=== PATIENT | female | born 1990 | race African-American/Black ===

== ENCOUNTER 2020-12-28 12:40 | Emergency (ER) | payer MEDICAID, OTHER ==
[~2020-12-28] VITALS: Ht 172.7 cm; Wt 104.3 kg
[2020-12-28 13:12] LABS: Basophils # (auto) 0 10 ^3/uL (0-0.2); Basophils % (auto) 0.4 % (0.0-2.0); Eosinophils # (auto) 0.1 10 ^3/uL (0-0.8); Eosinophils % (auto) 1.2 % (0.0-7.0); Hematocrit 40.1 % (36.0-46.0); Hemoglobin 13.4 g/dL (12.2-16.2); Lymphocytes # (auto) 1.7 10 ^3/uL (0.4-5.4); Lymphocytes % (auto) 28.2 % (10.0-50.0); Mean Corpuscular Hemoglobin 29.1 pg (28.0-32.0); Mean Corpuscular Hgb Conc. 33.5 g/dL (32.0-36.0); Monocytes # (auto) 0.4 10 ^3/uL (0-1.3); Monocytes % (auto) 6.9 % (0.0-12.0); Neutrophils # (auto) 3.8 10 ^3/uL (1.6-8.6); Neutrophils % (auto) 63.3 % (37.0-80.0); Nucleated Red Blood Cells % 0.1 %; Red Blood Cells 4.61 10^6/uL (4.0-5.20); Red Cell Distribution Width 13.6 % (11.8-14.3); White Blood Cell 6.1 10^3/uL (4.4-10.8)
[2020-12-28 13:27] LABS: Albumin 3.1 g/dL (3.4-5.0); Anion Gap 3 (5-15); Blood Urea Nitrogen 5 mg/dL (7-18); Carbon Dioxide 27 mmol/L (21-32); Chloride 107 mmol/L (98-107); Glucose 96 mg/dL (74-106); Magnesium 2.2 mg/dL (1.6-2.6); Potassium 3.7 mmol/L (3.5-5.1); Sodium 137 mmol/L (136-145)
[2020-12-28 13:33] LABS: Alanine Aminotransferase 69 U/L (13-56); Alkaline Phosphatase 69 U/L (45-117); Aspartate Aminotransferase 58 U/L (15-37); BUN/Creatinine Ratio 5.6; Bilirubin, Total 0.5 mg/dL (0.2-1.0); GFR African American 96 mL/min; GFR Non-African American 79 mL/min; Total Protein 7.6 g/dL (6.4-8.2)
[2020-12-28 16:41] VITALS: BP 127/88
== END 2020-12-28 16:21 | disposition home or self-care (01) ==
LOC: ER 12:40
DX: R07.89 Other chest pain (principal); K21.9 Gastro-esophageal reflux disease without esophagitis
CPT/HCPCS: 36415; 71046; 80053; 83735; 84484; 85025; 93005

== ENCOUNTER 2022-01-25 09:33 | Inpatient (IN) | payer MEDICAID ==
[~2022-01-25] VITALS: Ht 172.7 cm; Wt 97.7 kg
[2022-01-25] MEDS ORDERED: SODIUM CHLORIDE 0.9% 1,000 ML IVB ONE (10:00)
[2022-01-25] MEDS ORDERED: ONDANSETRON HCL 4 MG/2 ML VIAL IV ONE (10:00)
[2022-01-25] MEDS ORDERED: MORPHINE SULFATE 4 MG/ML SYR/VIAL IV ONE (10:00)
[2022-01-25 10:32] LABS: Basophils # (auto) 0 10 ^3/uL (0-0.2); Basophils % (auto) 0.1 % (0.0-2.0); Eosinophils # (auto) 0 10 ^3/uL (0-0.8); Monocytes # (auto) 0.7 10 ^3/uL (0-1.3)
[2022-01-25 10:35] LABS: Hematocrit 53.2 % (36.0-46.0); Lymphocytes # (auto) 1.4 10 ^3/uL (0.4-5.4); Lymphocytes % (auto) 9.5 % (10.0-50.0); Mean Corpuscular Hemoglobin 27.8 pg (28.0-32.0); Mean Corpuscular Hgb Conc. 31.9 g/dL (32.0-36.0); Mean Corpuscular Volume 87.2 fL (80.0-100.0); Monocytes % (auto) 4.7 % (0.0-12.0); Neutrophils # (auto) 12.2 10 ^3/uL (1.6-8.6); Neutrophils % (auto) 85.7 % (37.0-80.0); Nucleated Red Blood Cells % 0.1 %; Red Blood Cells 6.11 10^6/uL (4.0-5.20); Red Cell Distribution Width 14.1 % (11.8-14.3); White Blood Cell 14.3 10^3/uL (4.4-10.8)
[2022-01-25 10:50] LABS: Calcium 7.5 mg/dL (8.5-10.1); Potassium 4.7 mmol/L (3.5-5.1)
[2022-01-25 10:51] LABS: Lactic Acid w/Reflex 6.3 mmol/L (0.4-2.0)
[2022-01-25 10:54] LABS: INR 1.2 (0.9-1.15); Partial Thromboplastin Time 27.5 sec (24.6-33.4)
[2022-01-25 10:59] LABS: BUN/Creatinine Ratio 11.3; Bilirubin, Total 1.1 mg/dL (0.2-1.0); Total Protein 7.6 g/dL (6.4-8.2)
[2022-01-25 11:03] LABS: Urine Bacteria NONE SEEN /hpf (None Seen); Urine Blood 3+ /uL (Negative); Urine Mucus FEW (None Seen); Urine WBC 3 /hpf (0 - 5)
[2022-01-25] MEDS ORDERED: levoFLOXacin 500MG 100 ML IV ONE (11:45)
[2022-01-25] MEDS ORDERED: cefTRIAXone 1GM/50ML D5W 50 ML IV ONE (11:45)
[2022-01-25] MEDS ORDERED: SODIUM CHLORIDE 0.9% 2,000 ML IV ONE (11:45)
[2022-01-25] MEDS ORDERED: NITROGLYCERIN 0.4 MG SL TAB SL PRN (13:45)
[2022-01-25] MEDS ORDERED: MORPHINE SULFATE INJ 2 MG/ml SYRG IV PRN (13:45)
[2022-01-25] MEDS: SODIUM CHLORIDE 0.9% 1,000 ML IV SCH (16:01)
[2022-01-25] MEDS ORDERED: PANTOPRAZOLE 40 MG/10 ML VIAL INJ IV ONE (16:45)
[2022-01-25] MEDS: LORazepam 2MG/ML-1ML VIAL IV PRN ×2 (16:46→22:36)
[2022-01-25 18:30] VITALS: BP 115/80
[2022-01-25] MEDS: metroNIDAZOLE 500MG/100ML 100 ML IV SCH (22:44)
[2022-01-25] MEDS ORDERED: MORPHINE SULFATE INJ 2 MG/ml SYRG IV ONE (23:30)
[2022-01-25] MEDS: MORPHINE SULFATE INJ 2 MG/ml SYRG IV PRN (23:39)
[2022-01-26] MEDS ORDERED: METOPROLOL TARTRATE 1MG/1ML-5ML VIAL IV ONE (01:00)
[2022-01-26 01:13] VITALS: BP 114/76
[2022-01-26] MEDS: LORazepam 2MG/ML-1ML VIAL IV PRN ×5 (02:24→22:35)
[2022-01-26 05:35] VITALS: BP 133/77
[2022-01-26] MEDS: metroNIDAZOLE 500MG/100ML 100 ML IV SCH ×3 (06:08→22:34)
[2022-01-26 06:32] LABS: Basophils # (auto) 0 10 ^3/uL (0-0.2); Basophils % (auto) 0.2 % (0.0-2.0); Eosinophils # (auto) 0 10 ^3/uL (0-0.8); Lymphocytes % (auto) 7.3 % (10.0-50.0); Monocytes # (auto) 0.9 10 ^3/uL (0-1.3); Monocytes % (auto) 6.9 % (0.0-12.0); Neutrophils # (auto) 11.5 10 ^3/uL (1.6-8.6); Neutrophils % (auto) 85.6 % (37.0-80.0); Red Blood Cells 5.35 10^6/uL (4.0-5.20); White Blood Cell 13.5 10^3/uL (4.4-10.8)
[2022-01-26 06:33] LABS: Hematocrit 46.5 % (36.0-46.0); Hemoglobin 15.2 g/dL (12.2-16.2); Mean Corpuscular Hemoglobin 28.5 pg (28.0-32.0); Mean Corpuscular Hgb Conc. 32.8 g/dL (32.0-36.0); Mean Corpuscular Volume 86.9 fL (80.0-100.0); Red Cell Distribution Width 14.1 % (11.8-14.3)
[2022-01-26] MEDS: SODIUM CHLORIDE 0.9% 1,000 ML IV SCH ×3 (06:33→15:52)
[2022-01-26 06:49] LABS: Albumin 2.3 g/dL (3.4-5.0); Calcium 6.4 mg/dL (8.5-10.1)
[2022-01-26 06:53] LABS: BUN/Creatinine Ratio 11.8; Bilirubin, Total 0.9 mg/dL (0.2-1.0); Total Protein 6.8 g/dL (6.4-8.2)
[2022-01-26] MEDS: cefTRIAXone 1GM/50ML D5W 50 ML IV SCH (08:27)
[2022-01-26] MEDS: PANTOPRAZOLE 40 MG/10 ML VIAL INJ IV SCH (08:28)
[2022-01-26 08:37] VITALS: BP 133/73
[2022-01-26 09:53] LABS: Amylase 791 U/L (25-115); Lipase 1780 U/L (73-393)
[2022-01-26] MEDS ORDERED: SODIUM CHLORIDE 0.9% 1,000 ML IV ONE (10:15)
[2022-01-26] MEDS: MORPHINE SULFATE INJ 2 MG/ml SYRG IV PRN ×2 (11:00→15:42)
[2022-01-26] MEDS: chlordiazePOXIDE HCL 25 MG CAP PO PRN ×2 (11:01→19:07)
[2022-01-26 12:43] VITALS: BP 140/77
[2022-01-26 15:40] LABS: BUN/Creatinine Ratio 13.2; Calcium 6.2 mg/dL (8.5-10.1); Potassium 4.1 mmol/L (3.5-5.1)
[2022-01-26] MEDS: FOLIC ACID 1 MG, MULTIPLE VITAMIN 10 ML, MAGNESIUM SULF SDV 50% 8 MEQ, THIAMINE INJ 100... INJ SCH ×5 (15:51)
[2022-01-26 17:27] VITALS: BP 140/77
[2022-01-26] MEDS: ACETAMINOPHEN 325 MG TAB PO PRN (19:07)
[2022-01-26] MEDS: SOD CHL 0.45% 1,000 ML IV SCH (19:09)
[2022-01-26 22:00] VITALS: BP 130/84
[2022-01-27] MEDS: SOD CHL 0.45% 1,000 ML IV SCH ×3 (02:15→18:38)
[2022-01-27] MEDS: LORazepam 2MG/ML-1ML VIAL IV PRN ×3 (03:32→21:43)
[2022-01-27] MEDS: chlordiazePOXIDE HCL 25 MG CAP PO PRN ×3 (03:33→18:40)
[2022-01-27 04:24] LABS: Basophils # (auto) 0 10 ^3/uL (0-0.2); Basophils % (auto) 0.2 % (0.0-2.0); Eosinophils # (auto) 0 10 ^3/uL (0-0.8); Hematocrit 41.4 % (36.0-46.0); Hemoglobin 13.1 g/dL (12.2-16.2); Lymphocytes # (auto) 1.3 10 ^3/uL (0.4-5.4); Lymphocytes % (auto) 9.9 % (10.0-50.0); Mean Corpuscular Hgb Conc. 31.7 g/dL (32.0-36.0); Mean Corpuscular Volume 88.2 fL (80.0-100.0); Monocytes % (auto) 7.7 % (0.0-12.0); Neutrophils # (auto) 10.5 10 ^3/uL (1.6-8.6); Neutrophils % (auto) 82.2 % (37.0-80.0); Nucleated Red Blood Cells % 0.1 %; Red Cell Distribution Width 13.9 % (11.8-14.3); White Blood Cell 12.8 10^3/uL (4.4-10.8)
[2022-01-27 04:34] LABS: BUN/Creatinine Ratio 16.1; Calcium 6.8 mg/dL (8.5-10.1); Potassium 3.5 mmol/L (3.5-5.1)
[2022-01-27 05:00] VITALS: BP 131/89
[2022-01-27] MEDS: metroNIDAZOLE 500MG/100ML 100 ML IV SCH ×3 (05:12→21:42)
[2022-01-27] MEDS ORDERED: GASTROGRAFIN 30 ML SOL ONE (08:42)
[2022-01-27] MEDS: cefTRIAXone 1GM/50ML D5W 50 ML IV SCH (08:51)
[2022-01-27] MEDS: PANTOPRAZOLE 40 MG/10 ML VIAL INJ IV SCH (08:52)
[2022-01-27] MEDS: ONDANSETRON HCL 4 MG/2 ML VIAL IV PRN ×2 (09:04→18:49)
[2022-01-27 09:07] VITALS: BP 130/86
[2022-01-27] MEDS: MORPHINE SULFATE INJ 2 MG/ml SYRG IV PRN ×3 (11:10→17:16)
[2022-01-27] MEDS: FOLIC ACID 1 MG, MULTIPLE VITAMIN 10 ML, MAGNESIUM SULF SDV 50% 8 MEQ, THIAMINE INJ 100... INJ SCH ×5 (13:09)
[2022-01-27 13:47] VITALS: BP 138/88
[2022-01-27] MEDS: ACETAMINOPHEN 325 MG TAB PO PRN (17:15)
[2022-01-27 17:16] VITALS: BP 130/87
[2022-01-27 22:00] VITALS: BP 136/71
[2022-01-28] MEDS: SOD CHL 0.45% 1,000 ML IV SCH ×3 (01:51→18:46)
[2022-01-28 04:51] VITALS: BP 133/66
[2022-01-28 06:28] LABS: Hematocrit 38.1 % (36.0-46.0); Hemoglobin 12.5 g/dL (12.2-16.2); Mean Corpuscular Hemoglobin 28.3 pg (28.0-32.0); Mean Corpuscular Hgb Conc. 32.8 g/dL (32.0-36.0); Mean Corpuscular Volume 86.2 fL (80.0-100.0); Red Blood Cells 4.43 10^6/uL (4.0-5.20); Red Cell Distribution Width 14.1 % (11.8-14.3); White Blood Cell 12.7 10^3/uL (4.4-10.8)
[2022-01-28 06:43] LABS: Potassium 3.6 mmol/L (3.5-5.1)
[2022-01-28 06:45] LABS: Basophils % (manual) 0 (0.0-2.0); Blast Cells 0; Eosinophils % (manual) 0 (0-7); Metamyelocytes % 0; Myelocytes % 0; Promyelocytes % 0; Reactive Lymphocytes 0
[2022-01-28 06:47] LABS: Albumin 2.3 g/dL (3.4-5.0); BUN/Creatinine Ratio 16.3; Calcium 8.1 mg/dL (8.5-10.1)
[2022-01-28 06:58] LABS: Bilirubin, Total 1.9 mg/dL (0.2-1.0); Total Protein 6.7 g/dL (6.4-8.2)
[2022-01-28] MEDS: ONDANSETRON HCL 4 MG/2 ML VIAL IV PRN (08:05)
[2022-01-28] MEDS: metroNIDAZOLE 500MG/100ML 100 ML IV SCH ×3 (08:06→22:55)
[2022-01-28 08:28] LABS: Band Neutrophils % (manual) 2; Lymphocytes % (manual) 9 (10.0-50.0); Monocytes % (manual) 5 (0-12)
[2022-01-28 09:00] VITALS: BP 139/100
[2022-01-28] MEDS: cefTRIAXone 1GM/50ML D5W 50 ML IV SCH (10:24)
[2022-01-28] MEDS: chlordiazePOXIDE HCL 25 MG CAP PO PRN (10:24)
[2022-01-28] MEDS: PANTOPRAZOLE 40 MG/10 ML VIAL INJ IV SCH (10:25)
[2022-01-28] MEDS: LORazepam 2MG/ML-1ML VIAL IV PRN ×3 (11:11→20:52)
[2022-01-28] MEDS: MORPHINE SULFATE INJ 2 MG/ml SYRG IV PRN (12:45)
[2022-01-28 13:00] VITALS: BP 130/93
[2022-01-28] MEDS: FOLIC ACID 1 MG, MULTIPLE VITAMIN 10 ML, MAGNESIUM SULF SDV 50% 8 MEQ, THIAMINE INJ 100... INJ SCH ×5 (14:51)
[2022-01-28 16:59] VITALS: BP 149/96
[2022-01-28 22:00] VITALS: BP 128/78
[2022-01-29] MEDS: SOD CHL 0.45% 1,000 ML IV SCH ×3 (02:15→19:46)
[2022-01-29 05:00] VITALS: BP 129/77
[2022-01-29 05:24] LABS: Basophils # (auto) 0 10 ^3/uL (0-0.2); Basophils % (auto) 0.2 % (0.0-2.0); Eosinophils # (auto) 0 10 ^3/uL (0-0.8); Eosinophils % (auto) 0.2 % (0.0-7.0); Hematocrit 38.3 % (36.0-46.0); Hemoglobin 12.4 g/dL (12.2-16.2); Lymphocytes # (auto) 0.6 10 ^3/uL (0.4-5.4); Mean Corpuscular Hemoglobin 27.8 pg (28.0-32.0); Mean Corpuscular Hgb Conc. 32.4 g/dL (32.0-36.0); Mean Corpuscular Volume 85.8 fL (80.0-100.0); Monocytes # (auto) 1.2 10 ^3/uL (0-1.3); Monocytes % (auto) 9.3 % (0.0-12.0); Neutrophils # (auto) 10.9 10 ^3/uL (1.6-8.6); Neutrophils % (auto) 85.3 % (37.0-80.0); Nucleated Red Blood Cells % 0.1 %; Red Blood Cells 4.46 10^6/uL (4.0-5.20); White Blood Cell 12.7 10^3/uL (4.4-10.8)
[2022-01-29 05:43] LABS: BUN/Creatinine Ratio 17.7; Calcium 8.4 mg/dL (8.5-10.1); Potassium 3.6 mmol/L (3.5-5.1)
[2022-01-29] MEDS: metroNIDAZOLE 500MG/100ML 100 ML IV SCH ×3 (06:47→21:48)
[2022-01-29 09:00] VITALS: BP 143/90
[2022-01-29] MEDS: cefTRIAXone 1GM/50ML D5W 50 ML IV SCH (11:00)
[2022-01-29] MEDS: chlordiazePOXIDE HCL 25 MG CAP PO PRN (11:01)
[2022-01-29] MEDS: PANTOPRAZOLE 40 MG/10 ML VIAL INJ IV SCH (11:01)
[2022-01-29] MEDS: LORazepam 2MG/ML-1ML VIAL IV PRN ×2 (11:18→20:25)
[2022-01-29 13:00] VITALS: BP 147/91
[2022-01-29] MEDS: FOLIC ACID 1 MG, MULTIPLE VITAMIN 10 ML, MAGNESIUM SULF SDV 50% 8 MEQ, THIAMINE INJ 100... INJ SCH ×5 (14:25)
[2022-01-29 17:00] VITALS: BP 122/84
[2022-01-29 22:04] VITALS: BP 126/85
[2022-01-30] MEDS: LORazepam 2MG/ML-1ML VIAL IV PRN ×3 (00:41→18:55)
[2022-01-30] MEDS: SOD CHL 0.45% 1,000 ML IV SCH ×3 (04:02→18:15)
[2022-01-30 04:48] VITALS: BP 129/86
[2022-01-30] MEDS: metroNIDAZOLE 500MG/100ML 100 ML IV SCH ×3 (05:27→22:53)
[2022-01-30 07:09] LABS: Basophils # (auto) 0 10 ^3/uL (0-0.2); Basophils % (auto) 0.1 % (0.0-2.0); Eosinophils # (auto) 0 10 ^3/uL (0-0.8); Eosinophils % (auto) 0.3 % (0.0-7.0); Hematocrit 39.4 % (36.0-46.0); Hemoglobin 12.9 g/dL (12.2-16.2); Mean Corpuscular Hemoglobin 28.2 pg (28.0-32.0); Mean Corpuscular Hgb Conc. 32.7 g/dL (32.0-36.0); Mean Corpuscular Volume 86.2 fL (80.0-100.0); Monocytes # (auto) 1.3 10 ^3/uL (0-1.3); Monocytes % (auto) 7.9 % (0.0-12.0); Neutrophils # (auto) 14.6 10 ^3/uL (1.6-8.6); Neutrophils % (auto) 85.7 % (37.0-80.0); Nucleated Red Blood Cells % 0.1 %; Red Blood Cells 4.57 10^6/uL (4.0-5.20); Red Cell Distribution Width 13.9 % (11.8-14.3)
[2022-01-30 08:00] VITALS: BP 114/76
[2022-01-30 09:00] VITALS: BP 117/72
[2022-01-30] MEDS: PANTOPRAZOLE 40 MG/10 ML VIAL INJ IV SCH (09:08)
[2022-01-30] MEDS: cefTRIAXone 1GM/50ML D5W 50 ML IV SCH (09:08)
[2022-01-30 10:42] LABS: BUN/Creatinine Ratio 16.1; Calcium 7.7 mg/dL (8.5-10.1)
[2022-01-30 10:44] LABS: Potassium 3.9 mmol/L (3.5-5.1)
[2022-01-30 13:00] VITALS: BP 118/81
[2022-01-30] MEDS: FOLIC ACID 1 MG, MULTIPLE VITAMIN 10 ML, MAGNESIUM SULF SDV 50% 8 MEQ, THIAMINE INJ 100... INJ SCH ×5 (13:02)
[2022-01-30 17:00] VITALS: BP 134/81
[2022-01-30 21:55] VITALS: BP 136/83
[2022-01-31] MEDS: SOD CHL 0.45% 1,000 ML IV SCH ×3 (02:15→20:05)
[2022-01-31 05:00] VITALS: BP 115/76
[2022-01-31 06:01] LABS: Basophils # (auto) 0.1 10 ^3/uL (0-0.2); Basophils % (auto) 0.5 % (0.0-2.0); Eosinophils # (auto) 0 10 ^3/uL (0-0.8); Eosinophils % (auto) 0.2 % (0.0-7.0); Hematocrit 35.3 % (36.0-46.0); Hemoglobin 11.6 g/dL (12.2-16.2); Lymphocytes % (auto) 5.1 % (10.0-50.0); Mean Corpuscular Hemoglobin 27.9 pg (28.0-32.0); Mean Corpuscular Hgb Conc. 32.8 g/dL (32.0-36.0); Monocytes # (auto) 1.2 10 ^3/uL (0-1.3); Monocytes % (auto) 6.2 % (0.0-12.0); Neutrophils # (auto) 16.9 10 ^3/uL (1.6-8.6); Red Blood Cells 4.16 10^6/uL (4.0-5.20); Red Cell Distribution Width 13.7 % (11.8-14.3); White Blood Cell 19.2 10^3/uL (4.4-10.8)
[2022-01-31 06:21] LABS: BUN/Creatinine Ratio 18.5; Calcium 7.8 mg/dL (8.5-10.1); Potassium 3.6 mmol/L (3.5-5.1)
[2022-01-31] MEDS: metroNIDAZOLE 500MG/100ML 100 ML IV SCH ×3 (06:35→22:15)
[2022-01-31] MEDS: LORazepam 2MG/ML-1ML VIAL IV PRN ×2 (07:00→23:52)
[2022-01-31 08:45] VITALS: BP 123/69
[2022-01-31] MEDS: cefTRIAXone 1GM/50ML D5W 50 ML IV SCH (09:25)
[2022-01-31] MEDS: PANTOPRAZOLE 40 MG/10 ML VIAL INJ IV SCH (09:28)
[2022-01-31 10:44] LABS: Basophils # (auto) 0.1 10 ^3/uL (0-0.2); Basophils % (auto) 0.3 % (0.0-2.0); Eosinophils # (auto) 0 10 ^3/uL (0-0.8); Eosinophils % (auto) 0.2 % (0.0-7.0); Hemoglobin 11.6 g/dL (12.2-16.2); Lymphocytes # (auto) 1.1 10 ^3/uL (0.4-5.4); Lymphocytes % (auto) 5.6 % (10.0-50.0); Mean Corpuscular Hemoglobin 27.4 pg (28.0-32.0); Mean Corpuscular Hgb Conc. 31.4 g/dL (32.0-36.0); Mean Corpuscular Volume 87.4 fL (80.0-100.0); Monocytes # (auto) 1.5 10 ^3/uL (0-1.3); Monocytes % (auto) 7.5 % (0.0-12.0); Neutrophils # (auto) 17.7 10 ^3/uL (1.6-8.6); Neutrophils % (auto) 86.4 % (37.0-80.0); Red Blood Cells 4.23 10^6/uL (4.0-5.20); Red Cell Distribution Width 14.2 % (11.8-14.3); White Blood Cell 20.4 10^3/uL (4.4-10.8)
[2022-01-31 11:13] LABS: Calcium 7.7 mg/dL (8.5-10.1); Potassium 4.1 mmol/L (3.5-5.1)
[2022-01-31 13:12] VITALS: BP 119/76
[2022-01-31] MEDS: FOLIC ACID 1 MG, MULTIPLE VITAMIN 10 ML, MAGNESIUM SULF SDV 50% 8 MEQ, THIAMINE INJ 100... INJ SCH ×5 (14:25)
[2022-01-31 17:48] VITALS: BP 119/84
[2022-01-31 20:00] VITALS: BP 113/64
[2022-01-31 22:00] VITALS: BP 119/70
[2022-02-01] MEDS: SOD CHL 0.45% 1,000 ML IV SCH ×3 (04:15→14:45)
[2022-02-01 04:35] VITALS: BP 121/79
[2022-02-01] MEDS: metroNIDAZOLE 500MG/100ML 100 ML IV SCH ×3 (06:18→22:07)
[2022-02-01 06:59] LABS: BUN/Creatinine Ratio 15.7; Calcium 7.7 mg/dL (8.5-10.1); Potassium 3.8 mmol/L (3.5-5.1)
[2022-02-01] MEDS: cefTRIAXone 1GM/50ML D5W 50 ML IV SCH (08:52)
[2022-02-01] MEDS: PANTOPRAZOLE 40 MG/10 ML VIAL INJ IV SCH (08:52)
[2022-02-01 08:57] VITALS: BP 121/77
[2022-02-01 12:57] VITALS: BP 131/69
[2022-02-01] MEDS: FOLIC ACID 1 MG, MULTIPLE VITAMIN 10 ML, MAGNESIUM SULF SDV 50% 8 MEQ, THIAMINE INJ 100... INJ SCH ×5 (14:10)
[2022-02-01] MEDS: MORPHINE SULFATE INJ 2 MG/ml SYRG IV PRN ×2 (14:12→19:49)
[2022-02-01 17:23] VITALS: BP 124/74
[2022-02-01 20:00] VITALS: BP 124/74
[2022-02-01 22:00] VITALS: BP 131/77
[2022-02-02] MEDS: MORPHINE SULFATE INJ 2 MG/ml SYRG IV PRN ×4 (01:37→22:17)
[2022-02-02] MEDS: SOD CHL 0.45% 1,000 ML IV SCH (02:00)
[2022-02-02 05:00] VITALS: BP 111/71
[2022-02-02 05:26] LABS: Basophils # (auto) 0 10 ^3/uL (0-0.2); Basophils % (auto) 0.2 % (0.0-2.0); Eosinophils # (auto) 0.1 10 ^3/uL (0-0.8); Eosinophils % (auto) 0.4 % (0.0-7.0); Hematocrit 33.8 % (36.0-46.0); Hemoglobin 10.9 g/dL (12.2-16.2); Lymphocytes % (auto) 5.6 % (10.0-50.0); Mean Corpuscular Hgb Conc. 32.4 g/dL (32.0-36.0); Mean Corpuscular Volume 86.6 fL (80.0-100.0); Monocytes # (auto) 1.8 10 ^3/uL (0-1.3); Monocytes % (auto) 10.1 % (0.0-12.0); Neutrophils # (auto) 14.9 10 ^3/uL (1.6-8.6); Neutrophils % (auto) 83.7 % (37.0-80.0); Red Cell Distribution Width 14.1 % (11.8-14.3); White Blood Cell 17.8 10^3/uL (4.4-10.8)
[2022-02-02] MEDS: metroNIDAZOLE 500MG/100ML 100 ML IV SCH ×3 (05:44→22:17)
[2022-02-02 05:49] LABS: BUN/Creatinine Ratio 13.3; Calcium 7.7 mg/dL (8.5-10.1); Potassium 3.8 mmol/L (3.5-5.1)
[2022-02-02 08:30] VITALS: BP 141/79
[2022-02-02] MEDS: cefTRIAXone 1GM/50ML D5W 50 ML IV SCH (09:16)
[2022-02-02] MEDS: PANTOPRAZOLE 40 MG/10 ML VIAL INJ IV SCH (09:17)
[2022-02-02 12:58] VITALS: BP 137/84
[2022-02-02] MEDS: FOLIC ACID 1 MG, MULTIPLE VITAMIN 10 ML, MAGNESIUM SULF SDV 50% 8 MEQ, THIAMINE INJ 100... INJ SCH ×5 (14:10)
[2022-02-02 17:00] VITALS: BP 127/79
[2022-02-02 22:00] VITALS: BP 132/76
[2022-02-03] MEDS: LORazepam 2MG/ML-1ML VIAL IV PRN (01:44)
[2022-02-03] MEDS: SOD CHL 0.45% 1,000 ML IV SCH (03:16)
[2022-02-03 04:17] LABS: Basophils # (auto) 0 10 ^3/uL (0-0.2); Basophils % (auto) 0.2 % (0.0-2.0); Eosinophils # (auto) 0.1 10 ^3/uL (0-0.8); Eosinophils % (auto) 0.3 % (0.0-7.0); Hematocrit 31.3 % (36.0-46.0); Hemoglobin 10.6 g/dL (12.2-16.2); Lymphocytes # (auto) 1.6 10 ^3/uL (0.4-5.4); Lymphocytes % (auto) 8.2 % (10.0-50.0); Mean Corpuscular Hemoglobin 28.8 pg (28.0-32.0); Mean Corpuscular Hgb Conc. 33.7 g/dL (32.0-36.0); Mean Corpuscular Volume 85.3 fL (80.0-100.0); Monocytes % (auto) 10.5 % (0.0-12.0); Neutrophils # (auto) 15.4 10 ^3/uL (1.6-8.6); Neutrophils % (auto) 80.8 % (37.0-80.0); Nucleated Red Blood Cells % 0.1 %; Red Blood Cells 3.67 10^6/uL (4.0-5.20); Red Cell Distribution Width 13.5 % (11.8-14.3); White Blood Cell 19.1 10^3/uL (4.4-10.8)
[2022-02-03 05:00] VITALS: BP 138/69
[2022-02-03 05:04] LABS: Potassium 3.6 mmol/L (3.5-5.1)
[2022-02-03 05:11] LABS: BUN/Creatinine Ratio 11.4; Calcium 7.9 mg/dL (8.5-10.1)
[2022-02-03] MEDS: metroNIDAZOLE 500MG/100ML 100 ML IV SCH ×3 (05:41→20:53)
[2022-02-03] MEDS: MORPHINE SULFATE INJ 2 MG/ml SYRG IV PRN ×2 (06:01→13:02)
[2022-02-03 08:45] VITALS: BP 134/74
[2022-02-03] MEDS: cefTRIAXone 1GM/50ML D5W 50 ML IV SCH (09:23)
[2022-02-03] MEDS: PANTOPRAZOLE 40 MG/10 ML VIAL INJ IV SCH (09:23)
[2022-02-03] MEDS ORDERED: TPN PER PHARMACY 0 ML IV SCH (11:00)
[2022-02-03] MEDS ORDERED: CLINIMIX PER PHARMACY 0 ML IV SCH (11:00)
[2022-02-03 12:36] VITALS: BP 129/76
[2022-02-03 12:38] LABS: Urine Bacteria NONE SEEN /hpf (None Seen); Urine Blood 3+ /uL (Negative); Urine Mucus FEW (None Seen); Urine Specific Gravity 1.013 (1.001-1.035); Urine WBC 2 /hpf (0 - 5)
[2022-02-03] MEDS: CEFEPIME 1GM/ 50ML 50 ML IV SCH ×2 (13:01→20:54)
[2022-02-03 13:22] LABS: INR 1.3 (0.9-1.15); Partial Thromboplastin Time 25.6 sec (24.6-33.4)
[2022-02-03] MEDS ORDERED: POTASSIUM PHOSPHATE 44 MEQ in D5W 5% 250 ML IV ONE ×2 (13:30→14:15)
[2022-02-03 17:03] VITALS: BP 136/79
[2022-02-03] MEDS ORDERED: LIDOCAINE 1% (LOCAL ANESTH.) PF 5ml SDV ID ONE (17:45)
[2022-02-03] MEDS ORDERED: PPN PER PHARMACY IV NR ×9 (20:00)
[2022-02-03] MEDS: SODIUM CHLOR 0.9% PF (SALINE LOCK) 10ML VIAL/SYR IV SCH (20:54)
[2022-02-03 22:00] VITALS: BP 121/86
[2022-02-03] MEDS: HYDROmorphone HCL 2 MG/ML VL/or syr IV PRN (22:43)
[2022-02-04] MEDS ORDERED: DEXTROSE (50%) 50ML SYRG IV SCH
[2022-02-04] MEDS: ACCU-CHEK COMFORT CURVE STRIP VI SCH ×4 (00:44→18:12)
[2022-02-04] MEDS: SOD CHL 0.45% 1,000 ML IV SCH (03:17)
[2022-02-04] MEDS: CEFEPIME 1GM/ 50ML 50 ML IV SCH ×3 (03:18→20:35)
[2022-02-04] MEDS: LORazepam 2MG/ML-1ML VIAL IV PRN (03:59)
[2022-02-04 05:00] VITALS: BP 144/70
[2022-02-04] MEDS: InsuLIN REG 1unit/0.01ml Soln (100units/ml) SC SCH ×4 (06:00→18:00)
[2022-02-04] MEDS: metroNIDAZOLE 500MG/100ML 100 ML IV SCH ×3 (06:22→22:27)
[2022-02-04 06:35] LABS: Basophils # (auto) 0 10 ^3/uL (0-0.2); Hemoglobin 10.6 g/dL (12.2-16.2); Mean Corpuscular Hgb Conc. 32.7 g/dL (32.0-36.0); Monocytes # (auto) 1.5 10 ^3/uL (0-1.3)
[2022-02-04 06:39] LABS: Basophils % (auto) 0.2 % (0.0-2.0); Eosinophils # (auto) 0 10 ^3/uL (0-0.8); Eosinophils % (auto) 0.3 % (0.0-7.0); Hematocrit 32.5 % (36.0-46.0); Lymphocytes % (auto) 7.4 % (10.0-50.0); Mean Corpuscular Hemoglobin 27.7 pg (28.0-32.0); Mean Corpuscular Volume 84.7 fL (80.0-100.0); Monocytes % (auto) 11.3 % (0.0-12.0); Neutrophils % (auto) 80.8 % (37.0-80.0); Nucleated Red Blood Cells % 0.1 %; Red Blood Cells 3.84 10^6/uL (4.0-5.20); Red Cell Distribution Width 13.5 % (11.8-14.3); White Blood Cell 13.6 10^3/uL (4.4-10.8)
[2022-02-04 06:49] LABS: Calcium 7.7 mg/dL (8.5-10.1); Potassium 3.6 mmol/L (3.5-5.1)
[2022-02-04 06:55] LABS: Albumin 1.9 g/dL (3.4-5.0); BUN/Creatinine Ratio 17.5; Bilirubin, Total 0.6 mg/dL (0.2-1.0); Magnesium 1.8 mg/dL (1.6-2.6); Phosphorus 2.4 mg/dL (2.5-4.90); Total Protein 5.7 g/dL (6.4-8.2)
[2022-02-04 09:00] VITALS: BP 135/79
[2022-02-04] MEDS ORDERED: POTASSIUM PHOSPHATE 22 MEQ in SODIUM CHL 0.9% 100 ML IV ONE (09:45)
[2022-02-04] MEDS: SODIUM CHLOR 0.9% PF (SALINE LOCK) 10ML VIAL/SYR IV SCH ×2 (10:09→22:10)
[2022-02-04] MEDS: PANTOPRAZOLE 40 MG/10 ML VIAL INJ IV SCH (10:09)
[2022-02-04] MEDS: HYDROmorphone HCL 2 MG/ML VL/or syr IV PRN (10:11)
[2022-02-04 13:00] VITALS: BP 129/92
[2022-02-04 17:00] VITALS: BP 124/85
[2022-02-04] MEDS: TPN PER PHARMACY IV NR ×9 (20:38)
[2022-02-04 22:00] VITALS: BP 124/86
[2022-02-05] MEDS ORDERED: KETOROLAC TROMETH 30 MG/ML 1ML VIAL IV ONE (01:00)
[2022-02-05] MEDS: InsuLIN REG 1unit/0.01ml Soln (100units/ml) SC SCH ×4 (01:03→18:00)
[2022-02-05] MEDS: CEFEPIME 1GM/ 50ML 50 ML IV SCH ×3 (03:30→18:52)
[2022-02-05 05:00] VITALS: BP 135/85
[2022-02-05] MEDS: ACCU-CHEK COMFORT CURVE STRIP VI SCH ×4 (06:00→18:17)
[2022-02-05] MEDS: metroNIDAZOLE 500MG/100ML 100 ML IV SCH ×3 (06:00→21:40)
[2022-02-05 06:10] LABS: Potassium 3.2 mmol/L (3.5-5.1)
[2022-02-05 06:15] LABS: Albumin 1.9 g/dL (3.4-5.0); BUN/Creatinine Ratio 22.6; Magnesium 1.9 mg/dL (1.6-2.6)
[2022-02-05 06:26] LABS: Bilirubin, Total 0.3 mg/dL (0.2-1.0); Phosphorus 2.4 mg/dL (2.5-4.90); Total Protein 6.4 g/dL (6.4-8.2)
[2022-02-05 09:00] VITALS: BP 123/83
[2022-02-05] MEDS: PANTOPRAZOLE 40 MG/10 ML VIAL INJ IV SCH (12:09)
[2022-02-05] MEDS: SODIUM CHLOR 0.9% PF (SALINE LOCK) 10ML VIAL/SYR IV SCH ×2 (12:09→21:40)
[2022-02-05] MEDS: MORPHINE SULFATE INJ 2 MG/ml SYRG IV PRN ×2 (12:37→18:19)
[2022-02-05 13:00] VITALS: BP 132/82
[2022-02-05] MEDS ORDERED: POTASSIUM PHOSPHATE 22 MEQ in SODIUM CHL 0.9% 100 ML IV ONE (13:15)
[2022-02-05 17:00] VITALS: BP 130/86
[2022-02-05 18:26] LABS: INR 1.3 (0.9-1.15); Partial Thromboplastin Time 27.2 sec (24.6-33.4)
[2022-02-05] MEDS: TPN PER PHARMACY IV NR ×9 (19:56)
[2022-02-05] MEDS ORDERED: TPN PER PHARMACY IV NR ×7 (20:00)
[2022-02-05 22:00] VITALS: BP 132/90
[2022-02-06] MEDS: ACCU-CHEK COMFORT CURVE STRIP VI SCH ×5 (00:18→23:42)
[2022-02-06] MEDS: D5W/SOD CHLO 0.9% 1,000 ML IV SCH ×2 (01:06→16:51)
[2022-02-06] MEDS: MORPHINE SULFATE INJ 2 MG/ml SYRG IV PRN ×4 (01:07→21:42)
[2022-02-06] MEDS: CEFEPIME 1GM/ 50ML 50 ML IV SCH ×3 (03:18→18:41)
[2022-02-06 05:00] VITALS: BP 134/84
[2022-02-06 05:25] LABS: Basophils # (auto) 0 10 ^3/uL (0-0.2); Eosinophils # (auto) 0.1 10 ^3/uL (0-0.8); Hemoglobin 10.4 g/dL (12.2-16.2); Monocytes # (auto) 1.2 10 ^3/uL (0-1.3); Neutrophils # (auto) 8.5 10 ^3/uL (1.6-8.6)
[2022-02-06 05:29] LABS: Basophils % (auto) 0.3 % (0.0-2.0); Eosinophils % (auto) 0.7 % (0.0-7.0); Hematocrit 32.3 % (36.0-46.0); Lymphocytes # (auto) 1.2 10 ^3/uL (0.4-5.4); Lymphocytes % (auto) 11.3 % (10.0-50.0); Mean Corpuscular Hemoglobin 27.9 pg (28.0-32.0); Mean Corpuscular Hgb Conc. 32.3 g/dL (32.0-36.0); Mean Corpuscular Volume 86.3 fL (80.0-100.0); Monocytes % (auto) 10.9 % (0.0-12.0); Neutrophils % (auto) 76.8 % (37.0-80.0); Nucleated Red Blood Cells % 0.1 %; Red Blood Cells 3.75 10^6/uL (4.0-5.20)
[2022-02-06 05:47] LABS: Albumin 2.1 g/dL (3.4-5.0); Calcium 8.1 mg/dL (8.5-10.1); Magnesium 1.8 mg/dL (1.6-2.6); Potassium 3.8 mmol/L (3.5-5.1)
[2022-02-06 05:51] LABS: BUN/Creatinine Ratio 22.8; Bilirubin, Total 0.3 mg/dL (0.2-1.0); Phosphorus 2.9 mg/dL (2.5-4.90)
[2022-02-06] MEDS: InsuLIN REG 1unit/0.01ml Soln (100units/ml) SC SCH ×5 (06:00→23:49)
[2022-02-06] MEDS: metroNIDAZOLE 500MG/100ML 100 ML IV SCH ×3 (06:22→21:43)
[2022-02-06] MEDS ORDERED: IOHEXOL 300 MG/ML 100ML BOTTLE IJ ONE (07:10)
[2022-02-06] MEDS: PANTOPRAZOLE 40 MG/10 ML VIAL INJ IV SCH (08:57)
[2022-02-06 09:00] VITALS: BP 143/84
[2022-02-06] MEDS: SODIUM CHLOR 0.9% PF (SALINE LOCK) 10ML VIAL/SYR IV SCH ×3 (09:00→21:43)
[2022-02-06 13:00] VITALS: BP 124/77
[2022-02-06] MEDS ORDERED: LIDOCAINE 1% (LOCAL ANESTH.) PF 5ml SDV ID ONE (14:15)
[2022-02-06] MEDS ORDERED: TPN PER PHARMACY IV NR ×8 (20:00)
[2022-02-06 22:30] VITALS: BP 142/92
[2022-02-07] MEDS ORDERED: HALOPERIDOL LACTATE 5 MG/ML INJ VIAL IM ONE (01:00)
[2022-02-07] MEDS: CEFEPIME 1GM/ 50ML 50 ML IV SCH ×3 (03:01→19:51)
[2022-02-07 05:00] VITALS: BP 146/86
[2022-02-07] MEDS: metroNIDAZOLE 500MG/100ML 100 ML IV SCH ×3 (05:50→21:32)
[2022-02-07] MEDS: ACCU-CHEK COMFORT CURVE STRIP VI SCH ×4 (05:51→23:19)
[2022-02-07] MEDS: InsuLIN REG 1unit/0.01ml Soln (100units/ml) SC SCH ×4 (05:56→23:20)
[2022-02-07] MEDS: MORPHINE SULFATE INJ 2 MG/ml SYRG IV PRN ×3 (06:03→19:51)
[2022-02-07 07:05] LABS: Basophils # (auto) 0.1 10 ^3/uL (0-0.2); Basophils % (auto) 0.6 % (0.0-2.0); Eosinophils # (auto) 0.1 10 ^3/uL (0-0.8); Eosinophils % (auto) 0.6 % (0.0-7.0); Hemoglobin 10.1 g/dL (12.2-16.2); Lymphocytes # (auto) 1.1 10 ^3/uL (0.4-5.4); Lymphocytes % (auto) 10.4 % (10.0-50.0); Mean Corpuscular Hemoglobin 27.9 pg (28.0-32.0); Mean Corpuscular Hgb Conc. 32.6 g/dL (32.0-36.0); Mean Corpuscular Volume 85.6 fL (80.0-100.0); Monocytes % (auto) 9.7 % (0.0-12.0); Neutrophils # (auto) 8.4 10 ^3/uL (1.6-8.6); Neutrophils % (auto) 78.7 % (37.0-80.0); Nucleated Red Blood Cells % 0.1 %; Red Blood Cells 3.61 10^6/uL (4.0-5.20); Red Cell Distribution Width 13.5 % (11.8-14.3); White Blood Cell 10.7 10^3/uL (4.4-10.8)
[2022-02-07 07:09] LABS: Albumin 2.1 g/dL (3.4-5.0); Magnesium 1.9 mg/dL (1.6-2.6); Potassium 3.4 mmol/L (3.5-5.1)
[2022-02-07 07:13] LABS: Bilirubin, Total 0.3 mg/dL (0.2-1.0); Phosphorus 2.5 mg/dL (2.5-4.90); Total Protein 6.6 g/dL (6.4-8.2)
[2022-02-07] MEDS: D5W/SOD CHLO 0.9% 1,000 ML IV SCH (08:48)
[2022-02-07] MEDS: SODIUM CHLOR 0.9% PF (SALINE LOCK) 10ML VIAL/SYR IV SCH ×4 (08:48→21:47)
[2022-02-07] MEDS: PANTOPRAZOLE 40 MG/10 ML VIAL INJ IV SCH (08:48)
[2022-02-07 09:00] VITALS: BP 147/90
[2022-02-07] MEDS ORDERED: POTASSIUM PHOSP 22MEQ(15MMOLE) in NS 100 ML IV ONE (10:00)
[2022-02-07 13:20] VITALS: BP 134/89
[2022-02-07 17:00] VITALS: BP 128/83
[2022-02-07 19:06] LABS: Amylase 116 U/L (25-115); Lipase 393 U/L (73-393)
[2022-02-07] MEDS ORDERED: TPN PER PHARMACY IV NR ×8 (20:00)
[2022-02-07 22:00] VITALS: BP 120/90
[2022-02-08] MEDS: CEFEPIME 1GM/ 50ML 50 ML IV SCH ×3 (03:20→19:48)
[2022-02-08] MEDS: MORPHINE SULFATE INJ 2 MG/ml SYRG IV PRN ×3 (03:32→20:10)
[2022-02-08 05:00] VITALS: BP 124/86
[2022-02-08] MEDS: metroNIDAZOLE 500MG/100ML 100 ML IV SCH ×3 (05:14→22:08)
[2022-02-08 06:13] LABS: Eosinophils # (auto) 0.1 10 ^3/uL (0-0.8)
[2022-02-08 06:17] LABS: Basophils # (auto) 0 10 ^3/uL (0-0.2); Basophils % (auto) 0.3 % (0.0-2.0); Eosinophils % (auto) 0.7 % (0.0-7.0); Hematocrit 31.4 % (36.0-46.0); Hemoglobin 10.5 g/dL (12.2-16.2); Lymphocytes # (auto) 1.2 10 ^3/uL (0.4-5.4); Lymphocytes % (auto) 10.2 % (10.0-50.0); Mean Corpuscular Hemoglobin 28.7 pg (28.0-32.0); Mean Corpuscular Hgb Conc. 33.3 g/dL (32.0-36.0); Mean Corpuscular Volume 86.1 fL (80.0-100.0); Monocytes # (auto) 1.1 10 ^3/uL (0-1.3); Monocytes % (auto) 9.3 % (0.0-12.0); Neutrophils % (auto) 79.5 % (37.0-80.0); Red Blood Cells 3.65 10^6/uL (4.0-5.20); White Blood Cell 11.4 10^3/uL (4.4-10.8)
[2022-02-08] MEDS: ACCU-CHEK COMFORT CURVE STRIP VI SCH ×4 (06:26→23:45)
[2022-02-08] MEDS: InsuLIN REG 1unit/0.01ml Soln (100units/ml) SC SCH ×4 (06:28→23:45)
[2022-02-08 06:33] LABS: Albumin 2.2 g/dL (3.4-5.0); Calcium 8.3 mg/dL (8.5-10.1); Magnesium 1.8 mg/dL (1.6-2.6); Potassium 4.2 mmol/L (3.5-5.1)
[2022-02-08 06:38] LABS: BUN/Creatinine Ratio 22.4; Bilirubin, Total 0.2 mg/dL (0.2-1.0); Phosphorus 2.5 mg/dL (2.5-4.90); Total Protein 6.8 g/dL (6.4-8.2)
[2022-02-08 09:04] VITALS: BP 131/83
[2022-02-08] MEDS: PANTOPRAZOLE 40 MG/10 ML VIAL INJ IV SCH (09:26)
[2022-02-08] MEDS: SODIUM CHLOR 0.9% PF (SALINE LOCK) 10ML VIAL/SYR IV SCH ×4 (09:27→21:10)
[2022-02-08] MEDS ORDERED: SODIUM PHOSP 40 MEQ in D5W 5% 250 ML IV ONE (10:45)
[2022-02-08 17:00] VITALS: BP 123/81
[2022-02-08] MEDS ORDERED: TPN PER PHARMACY IV NR ×9 (20:00)
[2022-02-08 22:00] VITALS: BP 125/84
[2022-02-09] MEDS: CEFEPIME 1GM/ 50ML 50 ML IV SCH ×3 (02:52→20:18)
[2022-02-09] MEDS: metroNIDAZOLE 500MG/100ML 100 ML IV SCH (05:30)
[2022-02-09 05:39] VITALS: BP 148/67
[2022-02-09] MEDS: ACCU-CHEK COMFORT CURVE STRIP VI SCH ×2 (05:42→12:07)
[2022-02-09] MEDS: InsuLIN REG 1unit/0.01ml Soln (100units/ml) SC SCH ×2 (05:45→12:00)
[2022-02-09 07:31] LABS: Albumin 2.4 g/dL (3.4-5.0); Calcium 8.2 mg/dL (8.5-10.1); Potassium 4.9 mmol/L (3.5-5.1)
[2022-02-09 07:32] LABS: Basophils # (auto) 0.1 10 ^3/uL (0-0.2); Basophils % (auto) 0.5 % (0.0-2.0); Eosinophils # (auto) 0.1 10 ^3/uL (0-0.8); Hemoglobin 10.4 g/dL (12.2-16.2); Lymphocytes # (auto) 1.2 10 ^3/uL (0.4-5.4); Mean Corpuscular Hemoglobin 28.2 pg (28.0-32.0); Red Cell Distribution Width 13.8 % (11.8-14.3)
[2022-02-09 07:36] LABS: BUN/Creatinine Ratio 31.4; Bilirubin, Total 0.2 mg/dL (0.2-1.0); Total Protein 6.6 g/dL (6.4-8.2)
[2022-02-09 07:55] LABS: Eosinophils % (auto) 0.9 % (0.0-7.0); Hematocrit 31.7 % (36.0-46.0); Mean Corpuscular Hgb Conc. 32.9 g/dL (32.0-36.0); Mean Corpuscular Volume 85.7 fL (80.0-100.0); Monocytes # (auto) 0.8 10 ^3/uL (0-1.3); Monocytes % (auto) 7.9 % (0.0-12.0); Neutrophils # (auto) 7.8 10 ^3/uL (1.6-8.6); Neutrophils % (auto) 78.7 % (37.0-80.0); Nucleated Red Blood Cells % 0.1 %; White Blood Cell 9.9 10^3/uL (4.4-10.8)
[2022-02-09 09:20] VITALS: BP 126/77
[2022-02-09] MEDS: SODIUM CHLOR 0.9% PF (SALINE LOCK) 10ML VIAL/SYR IV SCH ×4 (10:00→21:24)
[2022-02-09] MEDS: PANTOPRAZOLE 40 MG/10 ML VIAL INJ IV SCH (10:00)
[2022-02-09] MEDS: ACETAMINOPHEN 325 MG TAB PO PRN ×3 (12:52→23:13)
[2022-02-09 16:33] VITALS: BP 114/74
[2022-02-09] MEDS ORDERED: TPN PER PHARMACY IV NR ×10 (20:00)
[2022-02-09] MEDS: MORPHINE SULFATE INJ 2 MG/ml SYRG IV PRN (20:19)
[2022-02-09 22:00] VITALS: BP 126/79
[2022-02-10] MEDS: CEFEPIME 1GM/ 50ML 50 ML IV SCH ×3 (03:12→19:30)
[2022-02-10 05:00] VITALS: BP 135/84
[2022-02-10 06:29] LABS: Basophils # (auto) 0 10 ^3/uL (0-0.2); Basophils % (auto) 0.6 % (0.0-2.0); Eosinophils # (auto) 0.1 10 ^3/uL (0-0.8); Eosinophils % (auto) 0.9 % (0.0-7.0); Hematocrit 33.3 % (36.0-46.0); Hemoglobin 10.8 g/dL (12.2-16.2); Lymphocytes # (auto) 1.1 10 ^3/uL (0.4-5.4); Lymphocytes % (auto) 13.4 % (10.0-50.0); Mean Corpuscular Hemoglobin 27.7 pg (28.0-32.0); Mean Corpuscular Hgb Conc. 32.4 g/dL (32.0-36.0); Mean Corpuscular Volume 85.7 fL (80.0-100.0); Monocytes # (auto) 0.8 10 ^3/uL (0-1.3); Monocytes % (auto) 9.3 % (0.0-12.0); Neutrophils # (auto) 6.4 10 ^3/uL (1.6-8.6); Neutrophils % (auto) 75.8 % (37.0-80.0); Red Blood Cells 3.88 10^6/uL (4.0-5.20); Red Cell Distribution Width 13.8 % (11.8-14.3); White Blood Cell 8.4 10^3/uL (4.4-10.8)
[2022-02-10 07:01] LABS: Potassium 5.2 mmol/L (3.5-5.1)
[2022-02-10 07:09] LABS: BUN/Creatinine Ratio 31.4; Calcium 8.7 mg/dL (8.5-10.1)
[2022-02-10 09:00] VITALS: BP 124/81
[2022-02-10] MEDS: PANTOPRAZOLE 40 MG/10 ML VIAL INJ IV SCH (10:07)
[2022-02-10] MEDS: SODIUM CHLOR 0.9% PF (SALINE LOCK) 10ML VIAL/SYR IV SCH ×3 (10:07→20:18)
[2022-02-10] MEDS ORDERED: chlordiazePOXIDE HCL 25 MG CAP PO PRN (10:45)
[2022-02-10] MEDS ORDERED: SODIUM ZIRCONIUM CYCL 10 GM PAK PO ONE (10:45)
[2022-02-10] MEDS ORDERED: FOLIC ACID 1 MG TAB PO ONE (11:00)
[2022-02-10] MEDS ORDERED: THIAMINE HCL 100 MG TAB PO ONE (11:00)
[2022-02-10 13:00] VITALS: BP 125/79
[2022-02-10] MEDS: ACETAMINOPHEN 325 MG TAB PO PRN (20:18)
[2022-02-11] MEDS: ACETAMINOPHEN 325 MG TAB PO PRN ×2 (01:31→16:06)
[2022-02-11] MEDS: CEFEPIME 1GM/ 50ML 50 ML IV SCH ×3 (03:10→19:00)
[2022-02-11 06:22] LABS: Calcium 8.7 mg/dL (8.5-10.1); Potassium 4.6 mmol/L (3.5-5.1)
[2022-02-11 08:54] VITALS: BP 126/83
[2022-02-11] MEDS: PANTOPRAZOLE 40 MG/10 ML VIAL INJ IV SCH (09:58)
[2022-02-11] MEDS: THIAMINE HCL 100 MG TAB PO SCH (09:59)
[2022-02-11] MEDS: FOLIC ACID 1 MG TAB PO SCH (09:59)
[2022-02-11] MEDS: SODIUM CHLOR 0.9% PF (SALINE LOCK) 10ML VIAL/SYR IV SCH ×2 (10:00→21:07)
[2022-02-11 13:00] VITALS: BP 133/98
[2022-02-11] MEDS ORDERED: LORazepam 2MG/ML-1ML VIAL IV ONE (14:15)
[2022-02-11 17:19] VITALS: BP 124/84
[2022-02-11 19:53] LABS: Urine Bacteria NONE SEEN /hpf (None Seen); Urine Blood 2+ /uL (Negative); Urine Mucus FEW (None Seen); Urine WBC 16 /hpf (0 - 5)
[2022-02-11 22:00] VITALS: BP 127/78
[2022-02-12] MEDS: CEFEPIME 1GM/ 50ML 50 ML IV SCH ×2 (02:57→11:01)
[2022-02-12 05:00] VITALS: BP 119/72
[2022-02-12] MEDS: FOLIC ACID 1 MG TAB PO SCH (10:56)
[2022-02-12] MEDS: THIAMINE HCL 100 MG TAB PO SCH (10:56)
[2022-02-12] MEDS: SODIUM CHLOR 0.9% PF (SALINE LOCK) 10ML VIAL/SYR IV SCH (10:57)
[2022-02-12] MEDS: PANTOPRAZOLE 40 MG/10 ML VIAL INJ IV SCH (10:57)
[2022-02-12] MEDS ORDERED: THIA100T10 PO (11:11)
[2022-02-12] MEDS ORDERED: FOLI1TAB6 PO (11:11)
[2022-02-12] MEDS ORDERED: PANT40TA2 PO (11:11)
[2022-02-12 12:01] VITALS: BP 137/76
== END 2022-02-12 13:00 | disposition home or self-care (01) | DRG 282 ==
LOC: ER 09:33 → TELE 14:08 → TELE-CENTR 18:30 → TELE-EAST 19:55 → EAST 02-10 22:08
PROVIDERS: ADMIT Nurse Practitioner Family; ATTEND Internal Medicine Pulmonary Disease
PROC: 0D9670Z Drainage of Stomach with Drainage Device, Via Natural or Artificial Opening (ICD-10-PCS; 2022-01-26)
PROC: 02HV33Z Insertion of Infusion Device into Superior Vena Cava, Percutaneous Approach (ICD-10-PCS; principal; 2022-02-03)
PROC: B548ZZA Ultrasonography of Superior Vena Cava, Guidance (ICD-10-PCS; 2022-02-03)
DX: K85.20 Alcohol induced acute pancreatitis without necrosis or infection (principal); K56.609 Unspecified intestinal obstruction, unspecified as to partial versus complete obstruction; N17.9 Acute kidney failure, unspecified; J18.9 Pneumonia, unspecified organism; J90 Pleural effusion, not elsewhere classified; D63.8 Anemia in other chronic diseases classified elsewhere; R65.10 Systemic inflammatory response syndrome (SIRS) of non-infectious origin without acute organ dysfunction; J98.11 Atelectasis; Z20.822 Contact with and (suspected) exposure to COVID-19; K21.9 Gastro-esophageal reflux disease without esophagitis; K42.9 Umbilical hernia without obstruction or gangrene; H54.7 Unspecified visual loss; R73.9 Hyperglycemia, unspecified; Y90.9 Presence of alcohol in blood, level not specified; F10.239 Alcohol dependence with withdrawal, unspecified; E66.9 Obesity, unspecified; Z68.34 Body mass index [BMI] 34.0-34.9, adult
CPT/HCPCS: 36415; 36569; 36600; 70450; 70551; 71045; 74018; 74022; 74176; 74177; 74250; 80048; 80053; 81001; 82140; 82150; 82805; 82962; 83036; 83605; 83690; 83735; 84100; 84478; 84484; 84702; 85007; 85025; 85027; 85610; 85730; 86850; 86900; 86901; 87040; 87086; 93005; 96361; 96365; 96368; 96375; 97110; 97163; 97530; 99291; C9113; G0378; J0696; J1815; J1885; J1956; J2405; J3490; J7042; J7060